=== PATIENT | female | born 1990 | race Caucasian/White ===

== ENCOUNTER → 2019-06-30 | Outpatient (CLI) | payer SELFPAY | PROVIDERS: Family Provider Obstetrics & Gynecology; Visit Provider Obstetrics & Gynecology | DX: Z01.89 Encounter for other specified special examinations (principal) | CPT/HCPCS: 84156 ==

== ENCOUNTER → 2019-09-12 10:35 | Outpatient (BNVA) | payer SELFPAY | PROVIDERS: Family Provider Obstetrics & Gynecology; PCP Obstetrics & Gynecology; Referring Provider Obstetrics & Gynecology; Visit Provider Obstetrics & Gynecology | DX: Z34.90 Encounter for supervision of normal pregnancy, unspecified, unspecified trimester (principal) | CPT/HCPCS: 36415; 82950; 85027 ==

== ENCOUNTER → 2019-09-20 10:07 | Outpatient (BNVA) | payer SELFPAY | PROVIDERS: Family Provider Obstetrics & Gynecology; PCP Obstetrics & Gynecology; Visit Provider Obstetrics & Gynecology | DX: Z34.90 Encounter for supervision of normal pregnancy, unspecified, unspecified trimester (principal) | CPT/HCPCS: 81003; 84315 ==

== ENCOUNTER → 2019-09-27 08:15 | Outpatient (BNVA) | payer SELFPAY | PROVIDERS: Family Provider Obstetrics & Gynecology; PCP Obstetrics & Gynecology; Referring Provider Obstetrics & Gynecology; Visit Provider Obstetrics & Gynecology | DX: P08.1 Other heavy for gestational age newborn (principal) | CPT/HCPCS: 76816 ==

== ENCOUNTER → 2019-10-10 13:20 | Outpatient (BNVA) | payer SELFPAY | PROVIDERS: Family Provider Obstetrics & Gynecology; PCP Obstetrics & Gynecology; Visit Provider Obstetrics & Gynecology Female Pelvic Medicine and Reconstructive Surgery | DX: Z01.89 Encounter for other specified special examinations (principal) | CPT/HCPCS: 84315 ==

== ENCOUNTER 2019-10-12 02:31 | Inpatient (IN) | payer MEDICAID, SELFPAY ==
[2019-10-12] VITALS (32 sets, daily range): BP systolic 0–149; BP diastolic 0–93; PULSE 76–128; RESP 16; TEMP 36.7–37.2; BMI 31.4
[2019-10-12] MEDS: betamethasone susp 6 mg/mL 5 mL 12 MG IM (03:18)
[2019-10-12 03:22] LABS: Add Urine Microscopic? NO
[2019-10-12 03:24] LABS: Nitrazine Paper, PH Positive
[2019-10-12 03:37] LABS: Bilirubin Urine Neg (NEGATIVE); Blood Urine Neg (Negative); Glucose Urine UA Norm (Normal); Ketones Urine 1+ (Negative); Leukocyte Esterase Urine Negative (Negative); Nitrate Urine Negative (Negative); Protein Urine Neg (Negative); Urine Appearance Clear (CLEAR); Urine Color Yellow (Yellow); Urobilinogen Urine Norm (Negative); pH Urine 5 (5-7)
[2019-10-12 03:46] LABS: Alanine Aminotransferase 11 U/L (0-33); Albumin Level 3.4 g/dL (3.5-5.2); Alkaline Phosphatase 118 IU/L (35-105); Anion Gap 16.5 (5-19); Aspartate Amino Transferase 20 U/L (0-32); Blood Urea Nitrogen 5 mg/dL (6-20); Calcium 9.1 mg/dL (8.5-10.5); Carbon Dioxide 19 mmol/L (22-29); Chloride 103 mmol/L (98-107); Globulin 3.3 g/dL (1.3-4.6); Glucose 106 mg/dL (65-115); Potassium 3.5 mmol/L (3.5-5.1); Sodium 135 mmol/L (136-145); Total Bilirubin 0.3 mg/dL (0.15-1.2); Total Protein 6.7 g/dL (6.6-8.7); Uric Acid 4.1 mg/dL (2.4-5.7)
[2019-10-12 03:47] LABS: Urine Creatinine 55 mg/dL (28-217); Urine Protein Random 4 mg/dL
[2019-10-12 03:59] LABS: Basophils % 0.2 %; Eosinophils # 0.1 10^3/uL (0.0-0.8); Eosinophils % 1.1 %; Hematocrit 34.3 % (37.0-47.0); Hemoglobin 11.9 g/dL (11.5-15.3); Lymphocytes # 1.8 10^3/uL (0.8-4.8); Lymphocytes % 16.8 %; Mean Corpuscular HGB Conc 34.7 g/dL (30.0-36.0); Mean Corpuscular Volume 92.2 fL (81-99); Mean Platelet Volume 10.1 fL (7.4-10.4); Monocytes # 0.6 10^3/uL (0.2-0.9); Monocytes % 5.3 %; Neutrophils # 8.1 10^3/uL (1.8-7.7); Neutrophils % 75.9 %; Nucleated Red Blood Cells % 0 %; Platelet Count 187 10^3/cmm (130-400); Red Blood Count 3.72 10^6/uL (4.1-5.3); Red Cell Distribution Width 11.9 % (12.1-15.1); White Blood Count 10.7 10^3/uL (4.0-10.0)
[2019-10-12 04:04] LABS: UPRO/UCREAT Ratio 0.07 mg/mg CR
[2019-10-12] MEDS: dextrose 5%-lactated ringers 1,000 ML 125 ML IV (05:02)
--- NOTE | 2019-10-12 06:03 | PM.HP ---
Providers/Chief Complaint Admitting Physician: Jarvis Arellano MD Primary Care Provider: Hermelindo Guzman MD Chief Complaint: OB TRIAGE History of Present Illness Syeda Meyers is a 29 year old female 3, para 1-1-0-2 with an LMP of 03/06/2019 and an EDC of 12/11/2019 based on LMP and consistent with an 11-week ultrasound, which placed her at 31-3/7 weeks gestation today. She presented to labor and delivery complaining of possible leaking of fluid. She stated that about 1230 this morning, she woke up with her bed wet. She states she has just continued to leak since then. She stated the fluid was clear in color. She denied any vaginal bleeding. She denied any contractions. She reports good movement. HOME MEDICATIONS 1. vitamins, 1 tablet daily 2. Aspirin 81 mg, 1 daily HISTORY 1----> 04/03/2016; rupture of membranes at 36 weeks and 5 days and labor, baby boy (Yakov) vaginal delivery over an intact perineum weighing [address] lbs[address] [place] [facility] [place] Uncomplicated care[place] 2---> 05/13/2018----> primary low transverse delivery at 38 weeks and 6 days for breech with gestational hypertension. Baby girl, Lilian Otero weighing [address] lbs[address] [place] [facility] [place] Review of Systems Const: Denies: fever or chills Eyes: Denies: change in vision ENMT: Denies: throat pain or nasal congestion Card: Denies: chest pain, palpitations or lightheadedness Resp: Denies: shortness of breath, productive cough, non-productive cough or wheezing GI: Denies: abdominal pain, nausea, vomiting, diarrhea or constipation : Reports: vaginal discharge (Watery fluid); Denies: painful urination, urinary frequency, blood in urine, genital itching, vaginal bleeding or pelvic pain Neuro: Denies: headache, dizziness or seizure-like activity Psych: Denies: anxiety or depression Endo: Denies: excessive urination, excessive thirst or cold intolerance Misael/Lymph: Denies: easy bruising or easy bleeding Medications/Allergies Allergies Allergy/AdvReac Type Severity Reaction Status Date / Time Penicillins Allergy ALGY-Hives Verified 09/12/19 09:56 PFSH Acute PFSH: Statuses (acute, chronic, etc) shown below reflect problem list status as previously entered and may not be historically accurate Medical History (Updated 10/12/19 @ 06:26 by Jarvis Arellano MD) History of gestational hypertension (Acute) Patient had gestational hypertension with her second . Surgical History (Updated 10/12/19 @ 06:14 by Jarvis Arellano MD) History of delivery (Acute 05/13/18) Primary LTCS. Diagnosis: Breech presentation. Performed by Dr. Brown at [facility] in [place], [place]. Family History (Updated 10/12/19 @ 06:15 by Jarvis Arellano MD) Grandmother Diabetes Maternal Stroke Maternal Hypertension Maternal Social History (Updated 10/12/19 @ 06:16 by Jarvis Arellano MD) Smoking and tobacco status: never smoked Alcohol intake: never Substance/Drug Use: never Marital status: Female Reproductive History: Date of last menstrual period: 03/06/19 : 3 Vitals/I&O/Wt Last Vital Signs Temp 98.4 F 10/12/19 04:00 Pulse 101 H 10/12/19 05:46 Resp 16 10/12/19 02:15 BP 140/88 10/12/19 05:46 Weight last 48 hrs Weight 183 lb Weight 183 lb Physical Exam Const: COMMON NORMALS: no apparent distress, average body habitus, alert and well nourished GENERAL APPEARANCE: well developed ORIENTATION/CONSCIOUSNESS: Yes oriented to person, Yes oriented to place and Yes oriented to time Neck/C-Spine: COMMON NORMALS: thyroid normal GENERAL: Yes trachea midline THYROID: thyroid normal Resp: COMMON NORMALS: normal respiratory effort and clear to auscultation bilaterally AUSCULTATION: clear to auscultation bilaterally Cardio: COMMON NORMALS: regular rate, regular rhythm, no gallops, no murmurs and no rub RATE: regular rate RHYTHM: regular rhythm GI: COMMON NORMALS: soft to palpation, non-tender, no hepatosplenomegaly and no masses AUSCULTATION: Yes normoactive bowel sounds PALPATION: Yes soft, Yes no hepatosplenomegaly and No hernia : EXTERNAL FEMALE EXAM: No hernia OTHER: Grossly ruptured Neuro: SENSORIUM/ORIENTATION: Yes alert, Yes oriented to person, Yes oriented to place and Yes oriented to time Psych: COMMON NORMALS: affect normal MOOD & AFFECT: Yes euthymic mood Skin: COMMON NORMALS: no rashes or lesions noted GENERAL SKIN EXAM: no rashes or lesions noted Data : 10/12/19 02:50 10/12/19 02:50 Other Labs: AST 20, ALT 11 Serum uric acid: 4.1 Urine protein/creatinine ratio 0.07 Urinalysis: Specific gravity 1.010, protein negative, glucose negative, ketones 1+, blood negative, nitrite negative, A&P Assessment and plan (1) premature rupture of membranes in third trimester: Patient is 31-3/7 weeks gestation with grossly ruptured membranes. Bedside ultrasound was performed which confirmed cephalic presentation. Fluid is visibly decreased around the baby. monitoring shows a baseline heart rate of 130-140 with moderate variability and accelerations present. Occasional variable decelerations were noted. No contractions documented. First dose of betamethasone has been given. Patient has also been started on cefazolin for GBS prophylaxis (reports allergy to penicillin). Discussed with patient and her partner that due to the prematurity, it is recommended for her to be transferred to a higher level care facility that has NICU capabilities. Discussed with her that she will most likely be in the hospital until delivery. Questions were answered. Patient is requesting transfer to [facility] in [place] if possible. Status: Acute Code(s): O42.913 - premature rupture of membranes, unspecified as to length of time between rupture and onset of labor, third trimester (2) Elevated blood pressure affecting in third trimester, antepartum: Patient was noted to have elevated blood pressure on admission of 149/93. Blood pressures have been normal since. This initial 1 was most likely due to anxiety. However she was evaluated for possible preeclampsia. Platelets were normal, liver enzymes were normal, with a normal protein creatinine ratio of less than 0.1. Status: Acute Code(s): O16.3 - Unspecified maternal hypertension, third trimester (3) Maternal care for unspecified type scar from previous delivery: Patient has had 1 prior section due to breech. This was her second . Her first was a vaginal delivery. She had documented low transverse incision. She had been considering attempting . Status: Acute Qualifiers: Previous delivery type: low transverse Qualified Code(s): O34.211 - Maternal care for low transverse scar from previous delivery Code(s): O34.219 - Maternal care for unspecified type scar from previous delivery Attestations Medical Necessity Statement*: Patient has been admitted due to premature rupture membranes. Coding Level of Care Code Acute Information Support Project Manager for [facility] Fwd Diagnoses premature rupture of membranes in third trimester O42.913 Elevated blood pressure affecting in third trimester, antepartum O16.3 Maternal care for unspecified type scar from previous delivery O34.211 Previous delivery type: low transverse
--- NOTE | 2019-10-12 06:32 | PM.TDS ---
Transfer Summary Providers Date of Admission: 10/12/19 02:31 Date of Discharge: 10/12/19 Attending Provider at Admission: Jarvis Arellano MD Attending Provider at Transfer: Jarvis Arellano MD Primary Care Provider: Hermelindo Guzman MD Anticipated Date of Transfer: Anticipated date of transfer: 10/12/19 Receiving Facility & Provider: Receiving Provider: Dr. Carter Receiving facility: [facility] in [place], [place] Diagnoses at Discharge Discharge Diagnosis (1) premature rupture of membranes in third trimester: Status: Acute (2) Elevated blood pressure affecting in third trimester, antepartum: Status: Acute (3) Maternal care for unspecified type scar from previous delivery: Status: Acute Qualifiers: Previous delivery type: low transverse Qualified Code(s): O34.211 - Maternal care for low transverse scar from previous delivery Reason for Visit Reason for Visit: Reason For Visit: OB TRIAGE Hospital Course Hospital Course: Patient admitted to labor and delivery at 31-3/7 weeks gestation. She was diagnosed with grossly ruptured membranes. Baby is in a cephalic presentation. monitoring has been reassuring with occasional variable decelerations. She has not been dada at this time. Patient initially had mildly elevated blood pressure on presentation which returned to normal. She was evaluated for possible preeclampsia with negative lab results. She has received her initial dose of betamethasone at 02:41. She was started on ceftezole and at 0431 for GBS prophylaxis. Plan was also to start her on erythromycin, but had not been started due to medication not being available prior to transfer. TS Data Data Completed and Pending: Labs from last 24 hours 10/12/19 10/12/19 10/12/19 02:50 02:50 02:50 WBC 10.7 H RBC 3.72 L Hgb 11.9 Hct 34.3 L MCV 92.2 MCH 32.0 MCHC 34.7 RDW 11.9 L Plt Count 187 MPV 10.1 Neut % (Auto) 75.9 Lymph % (Auto) 16.8 [place] % (Auto) 5.3 Eos % (Auto) 1.1 Baso % (Auto) 0.2 Neut # (Auto) 8.1 H Lymph # (Auto) 1.8 [place] # (Auto) 0.6 Eos # (Auto) 0.1 Baso # (Auto) 0.0 Nucleated RBC % (a uto) 0 Nucleated RBCs # 0.0 Sodium 135 L Potassium 3.5 Chloride 103 Carbon Dioxide 19 L Anion Gap 16.5 BUN 5 L Creatinine 0.6 GFR Calculation 119.0 Glucose 106 Uric Acid 4.1 Calcium 9.1 Total Bilirubin 0.3 AST 20 ALT 11 Alkaline Phosphata se 118 H Total Protein 6.7 Albumin 3.4 L Globulin 3.3 Urine Color Urine Appearance Urine pH Ur Specific Gravit y Urine Protein Urine Glucose (UA) Urine Ketones Urine Occult Blood Urine Nitrate Urine Bilirubin Urine Urobilinogen Ur Leukocyte Moni ase U Random Total Pro tein 4 Urine Creatinine 55 Protein/Creatinin Ratio 0.07 10/12/19 02:50 WBC RBC Hgb Hct MCV MCH MCHC RDW Plt Count MPV Neut % (Auto) Lymph % (Auto) [place] % (Auto) Eos % (Auto) Baso % (Auto) Neut # (Auto) Lymph # (Auto) [place] # (Auto) Eos # (Auto) Baso # (Auto) Nucleated RBC % (a uto) Nucleated RBCs # Sodium Potassium Chloride Carbon Dioxide Anion Gap BUN Creatinine GFR Calculation Glucose Uric Acid Calcium Total Bilirubin AST ALT Alkaline Phosphata se Total Protein Albumin Globulin Urine Color Yellow Urine Appearance Clear Urine pH 5 Ur Specific Gravit y 1.010 Urine Protein Neg Urine Glucose (UA) Norm Urine Ketones 1+ H Urine Occult Blood Neg Urine Nitrate Negative Urine Bilirubin Neg Urine Urobilinogen Norm Ur Leukocyte Moni ase Negative U Random Total Pro tein Urine Creatinine Protein/Creatinin Ratio Vitals: Last Vital Signs Temp 98.4 F 10/12/19 04:00 Pulse 96 10/12/19 06:26 Resp 16 10/12/19 02:15 BP 135/80 10/12/19 06:26 TS Medications Medications Home Medications acetaminophen 325 mg capsule 325 mg PO ONCE PRN 09/12/19 [History Confirmed 10/12/19] aspirin 81 mg tablet,delayed release 81 mg PO QID tab 09/12/19 [History Confirmed 10/12/19] prenat.vits,cait,[id number] 1 tab PO DAILY tab 09/12/19 [History Confirmed 10/12/19] Active Medications Acetaminophen (Tylenol) 650 mg PO Q6H PRN PRN Reason: Mild pain or temp > 100.4 Al Hydrox/Mg Hydrox/Simethicone (Maalox) 30 ml PO Q4H PRN PRN Reason: INDIGESTION Carboprost Tromethamine (Hemabate) 250 mcg IM ONCE PRN PRN Reason: 3rd line bleeding Erythromycin (Erythromycin) 250 mg PO Q6H [facility]; Protocol Hydroxyzine Pamoate (Vistaril) 50 mg PO QID PRN PRN Reason: sleep, agitation or itching Dextrose/Lactated Ringer's (Dextrose 5%-Lactated Ringers) 1,000 mls @ 125 mls/hr IV .Q8H [facility] Last Admin: 10/12/19 05:02 Dose: 125 mls/hr Documented by: Oxytocin (Pitocin) 30 unit in 500 mls @ 600 mls/hr IV .Q50M PRN; Protocol PRN Reason: After delivery of Lactated Ringer's (Lactated Ringers) 1,000 mls @ 999 mls/hr IV .Q1H1M PRN PRN Reason: BLEEDING Lactated Ringer's (Lactated Ringers) 1,000 mls @ 999 mls/hr IV .Q1H1M PRN PRN Reason: Per L&D Rescitation Protocol Tranexamic Acid 1,000 mg/ (Sodium Chloride) 110 mls @ 330 mls/hr IV Q30M PRN PRN Reason: BLEEDING Cefazolin Sodium 1,000 mg/ (Sodium Chloride) 50 mls @ 100 mls/hr IV Q8H [facility]; Protocol Lidocaine HCl (Lidocaine 2%) 0 ml INJECTION ONCE PRN PRN Reason: perineum repair after delivery Lidocaine HCl (Lidocaine 1%) 0.1 ml INTRADERMA PRN PRN PRN Reason: Anesthetic Prior to IV start Methylergonovine Maleate (Methergine) 0.2 mg IM Q20M PRN PRN Reason: 2nd line bleeding Metoclopramide HCl (Reglan) 10 mg IV ONCE PRN PRN Reason: N/V not relieved by zofran Misoprostol (Cytotec) 800 mcg VA ONCE PRN PRN Reason: 1st line bleeding Ondansetron HCl (Zofran) 4 mg IVP Q4H PRN PRN Reason: NAUSEA AND VOMITING Oxytocin (Pitocin) 20 unit IM ONCE PRN PRN Reason: 4th line bleeding Oxytocin (Pitocin) 20 unit IV ONCE PRN PRN Reason: 4th line bleeding Discharge Plan Discharge Patient Disposition: Xfer Other Condition: Stable Prescriptions: No Action prenat.vits,cait,[id number] Tablet 1 tab PO DAILY RF: 0 aspirin [Adult Low Dose Aspirin] 81 mg tablet,delayed release (DR/EC) 81 mg PO QID RF: 0 acetaminophen 325 mg capsule 325 mg PO ONCE PRN (Reason: Pain) RF: 0 Discharge Orders: Transfer Out of Facility (Order); Ordered 10/12/19 Ordered By: Jarvis Arellano Transfer Attestations Time Spent in Transfer Care*: less than 30 min Quality Metrics Clinical Quality Measures: During this hospital stay, did patient experience: None Coding Level of Care Code Acute Pin Cleaner for [facility] Fwd Diagnoses premature rupture of membranes in third trimester O42.913 Elevated blood pressure affecting in third trimester, antepartum O16.3 Maternal care for unspecified type scar from previous delivery O34.211 Previous delivery type: low transverse
== END 2019-10-12 08:12 | disposition short-term general hospital (02) | DRG 833 ==
LOC: OBGYN 06:38 → OPOB 10:33
PROVIDERS: Admitting Provider Obstetrics & Gynecology; Family Provider Obstetrics & Gynecology; PCP Obstetrics & Gynecology; Visit Provider Obstetrics & Gynecology
DX: O42.913 Preterm premature rupture of membranes, unspecified as to length of time between rupture and onset of labor, third trimester (principal); Z3A.31 31 weeks gestation of pregnancy; O76 Abnormality in fetal heart rate and rhythm complicating labor and delivery; O65.5 Obstructed labor due to abnormality of maternal pelvic organs; O34.211 Maternal care for low transverse scar from previous cesarean delivery; N85.8 Other specified noninflammatory disorders of uterus
CPT/HCPCS: 12345; 36415; 80053; 81003; 82570; 83986; 84156; 84550; 85025; 96372; 99211; J0690; J0702

== ENCOUNTER → 2020-12-03 13:53 | Outpatient (BNVA) | payer SELFPAY | PROVIDERS: Family Provider Obstetrics & Gynecology; Visit Provider Obstetrics & Gynecology | DX: Z01.419 Encounter for gynecological examination (general) (routine) without abnormal findings (principal); Z12.4 Encounter for screening for malignant neoplasm of cervix | CPT/HCPCS: 88175 ==

== ENCOUNTER 2021-04-28 14:27 | Emergency (ER) | payer SELFPAY ==
[2021-04-28 14:32] VITALS: BP 124/87; PULSE 112; RESP 19; TEMP 37.6; O2SAT 97; BMI 26.1
--- NOTE | 2021-04-28 14:57 | W.ED.GENADLT ---
HPI - General Adult General: Chief complaint: Abdominal Pain Stated complaint: lower sharp abd pains Time Seen by Provider: 04/28/21 14:38 History of Present Illness: HPI narrative: Patient is a 30-year-old female with history of 2 prior C-sections presenting to the emergency room with acute onset of lower abdominal pain x1 day. Reports mild nausea but denies vomiting. Patient states that pain is intermittent dada. Patient denies any new vaginal discharge, passage of clots or bleeding. Patient denies any urinary symptoms, hx of renal colic, or other abd surgeries. Describes the pain as intermittent cramping lasting for 15 minutes at a time. Currently symptom-free. Patient has been with pass gas has had multiple bowel movements since. Denies any diarrhea, melena/hematochezia. Patient has no associated chest pain, shortness breath, palpitation, fever or chills. Onset:1 day ago Duration:1 day Location:home Severity:moderate Review of Systems Narrative: Constitutional: No fever, no chills. HEENT: No vision changes CV: No chest pain, no palpitations PULM: no cough, no dyspnea. GI: +abdominal pain, +N/-V/-D. : No dysuria MSKEL: No muscle pain SKIN: No new rashes, no lesions. NEURO: No headache, no focal weakness. HEME: No visible bruises PSYCH: Normal mood PFSH ED PFSH: Medical History No pertinent past medical history Denies diabetes, asthma, hypertension, seizures, DVT/PE PCP: none Surgical History History of delivery x 2 05/13/2018---primary LTCS. Diagnosis: Breech presentation. Performed by Dr. Brown at [facility] in [place], [place]. 10/19/2019, repeat section at 32 3/7 weeks gestation, (premature rupture of membranes), boy (Vadim), 4 lbs 14 ounces. Delivered at [facility] in [place], [place]. Family History Grandmother Diabetes Maternal Stroke Maternal Hypertension Maternal Denies family history of Colon cancer Ovarian cancer Heart disease Hyperlipidemia Breast cancer Uterine cancer Thyroid condition Social History Smoking and tobacco status: never smoked Alcohol intake: never Marital status: Female Reproductive History: Date of last menstrual period: 03/06/19 Physical Exam Narrative: EXAM NARRATIVE: Head: Atraumatic Eyes: PERRL, conjunctiva without injection ENT: Mucous membrane moist NECK: Supple, ROM intact LUNGS: LCTAB, no crackles/rhonchi CV: RRR ABDOMEN: Soft, + mild tenderness to palpation of the left lower quadrant hypogastric region, no guarding no rebound tenderness, no McBurney's point tenderness, no Cordero sign, no CVA tenderness EXTREMITY: Normal ROM SKIN: No rash or erythema NEURO: Awake and alert, no focal motor deficits PSYCH: Normal mood and affect : Exam supervised by nurse. External genitalia wnl. No erythema around cervical os, os closed, no discharge, no bleeding. No CMT, no adnexal tenderness. Course Vital Signs: Vital signs: Vital Signs Temperature 99.6 F 04/28/21 14:32 Pulse Rate 95 04/28/21 16:01 Respiratory Rate 15 04/28/21 16:01 Blood Pressure 112/83 04/28/21 16:01 Pulse Oximetry 97 04/28/21 16:01 MDM - General Adult MDM Narrative: Medical decision making narrative: Patient is a 30-year-old female with 2 prior C-sections presenting to the emergency room with complaints of lower abdominal pain x1 day. On exam, patient has mild LLQ tenderness to palpation. Arrival, patient was noted to be tachycardic. WBC of 11.3K. CT abdomen pelvis showed uncomplicated sigmoid diverticulitis. Patient tolerated p.o. in the emergency room. Pain appears to be improved. Heart rate improved with IVF. At this time, I have offered patient mission, however given complicated nature of diverticulitis, decision was made in conjunction with patient for outpatient therapy. Patient agrees to follow-up with her PCP in the next 24 to 48 hours. Should she have any symptoms of nausea/vomiting, worsening pain, inability to take antibiotics, or any new or concerning complaints, I have informed her to come back to the emergency room and patient agrees with plan. Rx: Moxifloxacin 400 mg daily x7 days, Zofran ODT as needed nausea/vomiting Position: Discharge Lab Data: Labs: Lab Results 04/28/21 04/28/21 04/28/21 Range/Units 14:55 14:55 14:55 WBC 11.3 H (4.0-10.0) 10^3/ uL RBC 4.63 (4.1-5.3) 10^6/u L Hgb 14.5 (11.5-15.3) g/dL Hct 43.3 (37.0-47.0) % MCV 93.5 (81-99) fl MCH 31.3 (28.0-34.0) pg MCHC 33.5 (30.0-36.0) g/dL RDW 12.3 (12.1-15.1) % Plt Count 223 (130-400) 10^3/c mm MPV 9.5 (7.4-10.4) fL Neut % (Auto) 76.9 % Lymph % (Auto) 13.8 % Victoria % (Auto) 8.4 % Eos % (Auto) 0.4 % Baso % (Auto) 0.3 % Neut # (Auto) 8.71 H (1.8-7.7) 10^3/u L Lymph # (Auto) 1.6 (0.8-4.8) 10^3/u L Victoria # (Auto) 1.0 H (0.2-0.9) 10^3/u L Eos # (Auto) 0.1 (0.0-0.8) 10^3/u L Baso # (Auto) 0.0 (0.0-0.1) 10^3/u L Nucleated RBC % (a uto) 0 % Nucleated RBCs # 0.0 /100WBC Sodium 135 L (136-145) mmol/L Potassium 3.5 (3.5-5.1) mmol/L Chloride 101 (98-107) mmol/L Carbon Dioxide 23 (22-29) mmol/L Anion Gap 14.5 (5-19) BUN 8 (6-20) mg/dL Creatinine 0.7 (0.5-0.9) mg/dL GFR Calculation 98.9 (90-130) mL/min Glucose 97 (65-115) mg/dL Calculated Osmolal ity 278 L (285-295) mOsm/k g Calcium 9.0 (8.5-10.5) mg/dL Total Bilirubin 0.9 (0.15-1.2) mg/dL AST 22 (0-32) U/L ALT 32 (0-33) U/L Alkaline Phosphata se 81 (35-105) IU/L Total Protein 7.7 (6.6-8.7) g/dL Albumin 4.6 (3.5-5.2) g/dL Globulin 3.1 (1.3-4.6) g/dL Lipase 21 (13-60) U/L Urine Color (Yellow) Urine Appearance (CLEAR) Urine pH (5-7) Ur Specific Gravit y (1.005-1.030) Urine Protein (Negative) Urine Glucose (UA) (Normal) Urine Ketones (Negative) Urine Blood (Negative) Urine Nitrate (Negative) Urine Bilirubin (Negative) Urine Urobilinogen (Negative) mg/dL Ur Leukocyte Moni ase (Negative) Urine HCG, Qual Negative (Negative) 04/28/21 Range/Units 14:55 WBC (4.0-10.0) 10^3/ uL RBC (4.1-5.3) 10^6/u L Hgb (11.5-15.3) g/dL Hct (37.0-47.0) % MCV (81-99) fl MCH (28.0-34.0) pg MCHC (30.0-36.0) g/dL RDW (12.1-15.1) % Plt Count (130-400) 10^3/c mm MPV (7.4-10.4) fL Neut % (Auto) % Lymph % (Auto) % Victoria % (Auto) % Eos % (Auto) % Baso % (Auto) % Neut # (Auto) (1.8-7.7) 10^3/u L Lymph # (Auto) (0.8-4.8) 10^3/u L Victoria # (Auto) (0.2-0.9) 10^3/u L Eos # (Auto) (0.0-0.8) 10^3/u L Baso # (Auto) (0.0-0.1) 10^3/u L Nucleated RBC % (a uto) % Nucleated RBCs # /100WBC Sodium (136-145) mmol/L Potassium (3.5-5.1) mmol/L Chloride (98-107) mmol/L Carbon Dioxide (22-29) mmol/L Anion Gap (5-19) BUN (6-20) mg/dL Creatinine (0.5-0.9) mg/dL GFR Calculation (90-130) mL/min Glucose (65-115) mg/dL Calculated Osmolal ity (285-295) mOsm/k g Calcium (8.5-10.5) mg/dL Total Bilirubin (0.15-1.2) mg/dL AST (0-32) U/L ALT (0-33) U/L Alkaline Phosphata se (35-105) IU/L Total Protein (6.6-8.7) g/dL Albumin (3.5-5.2) g/dL Globulin (1.3-4.6) g/dL Lipase (13-60) U/L Urine Color Straw (Yellow) Urine Appearance Clear (CLEAR) Urine pH 6 (5-7) Ur Specific Gravit y 1.005 (1.005-1.030) Urine Protein Neg (Negative) Urine Glucose (UA) Norm (Normal) Urine Ketones 1+ H (Negative) Urine Blood Neg (Negative) Urine Nitrate Negative (Negative) Urine Bilirubin Neg (Negative) Urine Urobilinogen Norm (Negative) mg/dL Ur Leukocyte Moni ase Negative (Negative) Urine HCG, Qual (Negative) Imaging Data^: Other Imaging: Radiologist's impression: [address] [id number] Scan ReportSigned Patient: Rai Meyersit #: [id number]: 1990Acct#:[id number]/Sex: Date: 04/28/21Loc: ERRoom/Bed:Attending Dr: Ordering Provider/Ordering MD: Vernell Vazquez MD Date of Service: 04/28/21 Procedure(s): CT abdomen pelvis w con* [id number] Accession Number(s): [id number] Report Number: [id number] PROCEDURE INFORMATION: Exam: CT Abdomen And Pelvis With Contrast Exam date and time: 04/28/2021 2:56 PM Age: 30 years old Clinical indication: Abdominal pain; Generalized; Additional info: Evaluate for abd pain TECHNIQUE: Imaging protocol: Computed tomography of the abdomen and pelvis with contrast. Radiation optimization: All CT scans at this facility use at least one of these dose optimization techniques: automated exposure control; mA and/or kV adjustment per patient size (includes targeted exams where dose is matched to clinical indication); or iterative reconstruction. Contrast material: OMNI 300; Contrast volume: 95 ml; Contrast route: INTRAVENOUS (IV); COMPARISON: [place] [id number] 09/27/2019 8:17 AM RADIATION DOSE METRICS: Total DLP (mGy-cm): 1069.88 FINDINGS: Liver: Normal. No mass. Gallbladder and bile ducts: Normal. No calcified stones. No ductal dilation. Pancreas: Normal. No ductal dilation. Spleen: Normal. No splenomegaly. Adrenal glands: Normal. No mass. Kidneys and ureters: Normal. No hydronephrosis. Stomach and bowel: Mild proximal sigmoid colon diverticulitis is appreciated. No intestinal obstruction. Appendix: The appendix is normal. Intraperitoneal space: Trace free fluid in the pelvis is likely physiologic. No free air. Vasculature: Unremarkable. No abdominal aortic aneurysm. Lymph nodes: Unremarkable. No enlarged lymph nodes. Urinary bladder: Unremarkable as visualized. Reproductive: Septate uterus is appreciated. The ovaries appear normal. Bones/joints: Unremarkable. No acute fracture. Soft tissues: Unremarkable. CT/CT abdomen pelvis w con* [id number] IMPRESSION: 1. Mild proximal sigmoid diverticulitis. 2. Septate uterus. Radiation Dose CTDIVOL = (mGy): DLP = 1069.88 (mGy-cm) Dictated By:Jw Parker MDSigned By:Jw Parker MDSigned Date/Time:04/28/21 1557DD/ 1555 Discharge Plan Discharge Patient Disposition: Home Clinical Impression: Diverticulitis Condition: Stable Prescriptions: New moxifloxacin 400 mg tablet 400 mg PO DAILY PRN (Reason: diverticulitis) 7 Days RF: 0 Zofran 4 mg tablet 4 mg PO DAILY PRN (Reason: nausea and vomiting) 4 Days Qty: 4 RF: 0 No Action multivitamin Tablet 1 tab PO DAILY RF: 0 ascorbic acid (vitamin C) Granules 200 mg PO DAILY RF: 0 multivitamin with minerals [Hair,Skin and Nails] Tablet 1 tab PO DAILY RF: 0 Discharge Orders: Discharge ED (Routine); Ordered 04/28/21 Ordered By: Vernell Vazquez Referrals: Giacomo Vang MD [Primary Care Provider] - Discharge Diet: Advance as tolerated Discharge Activity: Resume usual activity Patient Instructions: Diverticulitis (ED) Activity Restrictions/Additional Instructions: You have diverticulitis. Please come back to the emergency room if your pain is uncontrolled, if you have nausea/vomiting and unable to hold your medicine. Please take your medicine as instructed. Take nausea medication which is dissolvable in your mouth if you are unable to take antibiotics. Coding Level of Care Code ED [employer] for Aimee Zhao
[2021-04-28 15:00] VITALS: BP 130/80; PULSE 107; RESP 16; O2SAT 98
[2021-04-28 15:05] LABS: Add Urine Microscopic? NO; Charge for UA Resulting for Rev
[2021-04-28 15:06] LABS: Basophils % 0.3 %; Eosinophils # 0.1 10^3/uL (0.0-0.8); Eosinophils % 0.4 %; Hematocrit 43.3 % (37.0-47.0); Hemoglobin 14.5 g/dL (11.5-15.3); Lymphocytes # 1.6 10^3/uL (0.8-4.8); Lymphocytes % 13.8 %; Mean Corpuscular HGB Conc 33.5 g/dL (30.0-36.0); Mean Corpuscular Hemoglobin 31.3 pg (28.0-34.0); Mean Corpuscular Volume 93.5 fl (81-99); Mean Platelet Volume 9.5 fL (7.4-10.4); Monocytes % 8.4 %; Neutrophils # 8.71 10^3/uL (1.8-7.7); Neutrophils % 76.9 %; Nucleated Red Blood Cells % 0 %; Platelet Count 223 10^3/cmm (130-400); Red Blood Count 4.63 10^6/uL (4.1-5.3); Red Cell Distribution Width 12.3 % (12.1-15.1); White Blood Count 11.3 10^3/uL (4.0-10.0)
[2021-04-28] MEDS: sodium chloride 0.9% 1,000 ML 999 ML IV (15:08)
[2021-04-28] MEDS: famotidine 20 mg/2 mL INJ IVP (15:08)
[2021-04-28 15:11] LABS: Bilirubin Urine Neg (Negative); Blood Urine Neg (Negative); Glucose Urine UA Norm (Normal); Ketones Urine 1+ (Negative); Leukocyte Esterase Urine Negative (Negative); Nitrate Urine Negative (Negative); Protein Urine Neg (Negative); Specific Gravity, Urine 1.005 (1.005-1.030); Urine Appearance Clear (CLEAR); Urine Color Straw (Yellow); Urobilinogen Urine Norm (Negative); pH Urine 6 (5-7)
--- NOTE | 2021-04-28 15:21 | PC.NURSE ---
WITNESS FOR DR PARK FOR PELVIC EXAM; PT TOLERATED WELL.
[2021-04-28 15:24] VITALS: RESP 15; O2SAT 98
[2021-04-28] MEDS: morphine 4 mg/mL SDV 1 mL 2 MG IVP (15:24)
[2021-04-28 15:32] LABS: Alanine Aminotransferase 32 U/L (0-33); Albumin Level 4.6 g/dL (3.5-5.2); Alkaline Phosphatase 81 IU/L (35-105); Anion Gap 14.5 (5-19); Aspartate Amino Transferase 22 U/L (0-32); Blood Urea Nitrogen 8 mg/dL (6-20); Carbon Dioxide 23 mmol/L (22-29); Chloride 101 mmol/L (98-107); Globulin 3.1 g/dL (1.3-4.6); Glomerular Filtration Rate 98.9 mL/min (90-130); Glucose 97 mg/dL (65-115); Lipase 21 U/L (13-60); Osmolality Calculated 278 mOsm/kg (285-295); Potassium 3.5 mmol/L (3.5-5.1); Sodium 135 mmol/L (136-145); Total Bilirubin 0.9 mg/dL (0.15-1.2); Total Protein 7.7 g/dL (6.6-8.7)
[2021-04-28] MEDS: iohexol 300 mg/mL 100 mL Btl IV (15:44)
[2021-04-28 16:01] VITALS: BP 112/83; PULSE 95; RESP 15; O2SAT 97
== END 2021-04-28 16:23 | disposition home or self-care (01) ==
PROVIDERS: Emergency Provider Emergency Medicine; PCP Obstetrics & Gynecology
DX: K57.32 Diverticulitis of large intestine without perforation or abscess without bleeding (principal)
CPT/HCPCS: 74177; 80053; 81003; 81025; 83690; 85025; 96361; 96374; 96375; 99284; J2270; J3490; J7030; Q9967